=== PATIENT | female | born 1980 | race Caucasian/White ===

== ENCOUNTER 2020-01-12 14:18 | Emergency (ER) | payer OTHER ==
[~2020-01-12] VITALS: Ht 175.3 cm; Wt 72.6 kg
[~2020-01-12 14:18] MED LIST: ACETAMINOPHEN-1 EAC1 PO; CIPRO500 MG PO; FLAGYL500 MG PO; HYDROCODONE-AP1 EAC6 PO; IBUPROFEN 600600 M1 PO; UNICOMPLEX M TA1 TA1 PO; ZOFRAN ODT4 MG PO
[2020-01-12] MEDS ORDERED: TRAMADOL 50 MG50 MG PO (15:45)
[2020-01-12] MEDS ORDERED: NAPROSYN500 MG PO (15:45)
[2020-01-12 15:51] VITALS: BP 134/73
== END 2020-01-12 15:52 | disposition home or self-care (01) ==
LOC: M.ERS 14:18
DX: M25.512 Pain in left shoulder (principal); F17.210 Nicotine dependence, cigarettes, uncomplicated; Z88.0 Allergy status to penicillin; Z88.5 Allergy status to narcotic agent; Z90.710 Acquired absence of both cervix and uterus; X50.1XXA Overexertion from prolonged static or awkward postures, initial encounter; Y93.89 Activity, other specified; Y92.89 Other specified places as the place of occurrence of the external cause; Y99.9 Unspecified external cause status